=== PATIENT | female | born 1940 | race African-American/Black ===

== ENCOUNTER 2017-07-22 04:26 | Inpatient (IN) | payer MEDICARE ==
[2017-07-22] VITALS (9 sets, daily range): BP systolic 127–158; BP diastolic 40–69
[2017-07-22 05:02] LABS: BASOPHILS 0.3 % (0-2); EOSINOPHILS 0.7 % (0-7); IMMATURE GRANULOCYTES 1.6 % (0-5); LYMPHOCYTES 24.6 % (15-50); MCH 29.9 pg (26.0-34.0); MCHC 30.7 g/dL (31.0-37.0); MCV 97.5 fL (80.0-100.0); MEAN PLATELET VOLUME 10.9 fL (7.4-10.4); NEUTROPHILS 65.8 % (40-80); PLATELET COUNT 281 10x3/uL (130-400); RBC 2.04 10x6/uL (4.00-5.40); RDW 14.1 % (11.5-14.5)
[2017-07-22 05:11] LABS: HEMATOCRIT 19.9 % (36.0-48.0); HEMOGLOBIN 6.1 g/dL (12-16)
[2017-07-22 05:21] LABS: ALBUMIN 2.5 g/dL (3.4-5.0); ANION GAP 16.3 mmol/L (8-16); BILIRUBIN - TOTAL 0.13 mg/dL (0.2-1.3); CALCIUM 7.7 mg/dL (8.5-10.1); CARBON DIOXIDE 21.4 mmol/L (21.0-32.0); CREATININE - SERUM 2.2 mg/dL (0.6-1.3); POTASSIUM - SERUM 5.7 mmol/L (3.5-5.1); PROTEIN - SERUM 4.8 g/dL (6.4-8.2)
[2017-07-22 05:33] LABS: APTT 20.9 SECONDS (22.8-39.4); INR 1.13 (0.85-1.17); PROTIME 14.1 SECONDS (11.6-15.0)
[2017-07-22 22:51] LABS: HEMATOCRIT 25.9 % (36.0-48.0); HEMOGLOBIN 8.1 g/dL (12-16)
[2017-07-22 22:59] LABS: ANION GAP 11.7 mmol/L (8-16); CALCIUM 7.4 mg/dL (8.5-10.1); CREATININE - SERUM 2.2 mg/dL (0.6-1.3)
[2017-07-22 23:03] LABS: POTASSIUM - SERUM 4.7 mmol/L (3.5-5.1)
[2017-07-23 00:10] VITALS: BP 148/64
[2017-07-23 00:16] VITALS: BP 136/58
[2017-07-23 00:40] VITALS: BP 133/61
[2017-07-23 01:40] VITALS: BP 124/53
[2017-07-23 04:52] VITALS: BP 135/56
[2017-07-23 05:09] LABS: BASOPHILS 0.2 % (0-2); EOSINOPHILS 1.4 % (0-7); HEMATOCRIT 26.6 % (36.0-48.0); HEMOGLOBIN 8.7 g/dL (12-16); LYMPHOCYTES 28.8 % (15-50); MCH 30.3 pg (26.0-34.0); MCHC 32.7 g/dL (31.0-37.0); MCV 92.7 fL (80.0-100.0); MEAN PLATELET VOLUME 10.8 fL (7.4-10.4); MONOCYTES 9.3 % (2-11); NEUTROPHILS 58.3 % (40-80); PLATELET COUNT 189 10x3/uL (130-400); RBC 2.87 10x6/uL (4.00-5.40); RDW 15.5 % (11.5-14.5); WBC 12.8 10x3/uL (4.8-10.8)
[2017-07-23 05:29] LABS: ALBUMIN 2.7 g/dL (3.4-5.0); ANION GAP 14.1 mmol/L (8-16); BILIRUBIN - TOTAL 0.18 mg/dL (0.2-1.3); CALCIUM 7.6 mg/dL (8.5-10.1); CARBON DIOXIDE 20.8 mmol/L (21.0-32.0); CREATININE - SERUM 2.2 mg/dL (0.6-1.3); POTASSIUM - SERUM 4.9 mmol/L (3.5-5.1); PROTEIN - SERUM 4.8 g/dL (6.4-8.2)
[2017-07-23 20:00] VITALS: BP 145/62
[2017-07-24] VITALS: BP 135/60
[2017-07-24 04:00] VITALS: BP 146/67
[2017-07-24 05:28] LABS: BASOPHILS 0.1 % (0-2); EOSINOPHILS 1.9 % (0-7); HEMATOCRIT 26.5 % (36.0-48.0); HEMOGLOBIN 8.4 g/dL (12-16); IMMATURE GRANULOCYTES 1.3 % (0-5); LYMPHOCYTES 18.2 % (15-50); MCH 29.9 pg (26.0-34.0); MCHC 31.7 g/dL (31.0-37.0); MCV 94.3 fL (80.0-100.0); MEAN PLATELET VOLUME 10.9 fL (7.4-10.4); MONOCYTES 7.4 % (2-11); NEUTROPHILS 71.1 % (40-80); PLATELET COUNT 183 10x3/uL (130-400); RBC 2.81 10x6/uL (4.00-5.40); RDW 15.8 % (11.5-14.5); WBC 10.5 10x3/uL (4.8-10.8)
[2017-07-24 05:34] LABS: ANION GAP 14.4 mmol/L (8-16); CARBON DIOXIDE 23.3 mmol/L (21.0-32.0); CREATININE - SERUM 2.1 mg/dL (0.6-1.3); POTASSIUM - SERUM 4.7 mmol/L (3.5-5.1)
[2017-07-24 09:26] VITALS: BP 144/66
[2017-07-24 23:00] VITALS: BP 146/57
[2017-07-25 01:29] VITALS: BP 151/62
[2017-07-25 04:59] VITALS: BP 150/73
[2017-07-25 05:38] LABS: BASOPHILS 0.1 % (0-2); EOSINOPHILS 3.2 % (0-7); IMMATURE GRANULOCYTES 1.4 % (0-5); LYMPHOCYTES 23.7 % (15-50); MCH 29.6 pg (26.0-34.0); MCHC 32.1 g/dL (31.0-37.0); MEAN PLATELET VOLUME 10.8 fL (7.4-10.4); MONOCYTES 8.6 % (2-11); PLATELET COUNT 184 10x3/uL (130-400); RDW 15.8 % (11.5-14.5)
[2017-07-25 05:55] LABS: HEMATOCRIT 32.7 % (36.0-48.0); HEMOGLOBIN 10.5 g/dL (12-16); MCV 92.1 fL (80.0-100.0); RBC 3.55 10x6/uL (4.00-5.40)
[2017-07-25 06:00] LABS: ANION GAP 13.2 mmol/L (8-16); CALCIUM 8.1 mg/dL (8.5-10.1); CARBON DIOXIDE 23.5 mmol/L (21.0-32.0); CREATININE - SERUM 1.9 mg/dL (0.6-1.3); POTASSIUM - SERUM 4.7 mmol/L (3.5-5.1)
[2017-07-25 09:47] VITALS: BP 178/72
[2017-07-25 12:02] VITALS: BP 152/67
[2017-07-25] MEDS ORDERED: ULTRACET TABLET1 TAB PO (14:00)
[2017-07-25] MEDS ORDERED: NORVASC5 MG PO (14:00)
[2017-07-25] MEDS ORDERED: PROTONIX40 MG PO (14:01)
[2017-07-25] MEDS ORDERED: CARAFATE1 G/10 ML PO (14:02)
== END 2017-07-25 16:07 | disposition home or self-care (01) | DRG 378 ==
LOC: D.ER 04:26 → D.MS 06:12
PROVIDERS: Emergency Medicine; Internal Medicine Gastroenterology
PROC: 0DB78ZX Excision of Stomach, Pylorus, Via Natural or Artificial Opening Endoscopic, Diagnostic (ICD-10-PCS; 2017-07-23)
PROC: 0DB98ZX Excision of Duodenum, Via Natural or Artificial Opening Endoscopic, Diagnostic (ICD-10-PCS; principal; 2017-07-23 09:00)
DX: K26.4 Chronic or unspecified duodenal ulcer with hemorrhage (principal); D62 Acute posthemorrhagic anemia; K44.9 Diaphragmatic hernia without obstruction or gangrene; K25.4 Chronic or unspecified gastric ulcer with hemorrhage; K29.80 Duodenitis without bleeding; K31.7 Polyp of stomach and duodenum; T45.525A Adverse effect of antithrombotic drugs, initial encounter; T39.015A Adverse effect of aspirin, initial encounter; E11.9 Type 2 diabetes mellitus without complications; N28.9 Disorder of kidney and ureter, unspecified; I10 Essential (primary) hypertension; K21.9 Gastro-esophageal reflux disease without esophagitis